=== PATIENT | male | born 1990 | race Caucasian/White ===

== ENCOUNTER 2021-01-26 12:32 | Outpatient (CLI) | payer OTHER, SELFPAY ==
--- NOTE | ~2021-01-26 | MR_ITS ---
EXAMINATION: MR brain IAC wo/w con EXAM DATE: 01/26/2021 13:52 INDICATION: Dizziness, pressure in right ear with associated gait disturbance. TECHNIQUE: Multi-sequential, multiplanar MR images of the brain, brainstem, internal auditory canals were obtained without contrast. Whole brain sagittal T1, axial diffusion, gradient echo (T2*), T1, T 2, FLAIR sequences obtained. High resolution coronal 3-D FIESTA, coronal T1 FSE, axial T1 FSPGR of t he internal auditory canals. Patient was then injected with 20 cc Multihance contrast intravenously. Postcontrast axial and coronal T1 weighted whole brain, axial and coronal high resolution T1 IAC seq uences obtained. There is no prior study for comparison. FINDINGS: No evidence of mastoid or middle ear opacification. The 7th/8th cranial nerve complexes a re symmetric, normal in course and caliber. No cerebellopontine angle masses. Posterior fossa unrem arkable. There are no areas of restricted diffusion to suggest acute infarction. There is no acute hemorrhage seen on the T2*, a hemosiderin sensitive sequence. No intraparenchymal brain mass. The ventricles a re normal in size. There are no extra-axial collections. Flow voids are seen in the cerebral arteri es on the T2-weighted sequences consistent with their expected patency. The orbits are unremarkable. Soft tissue is unremarkable. There are no areas of abnormal enhancement on the postcontrast image s. IMPRESSION: 1. Normal brain MRI examination. Reviewed, dictated and finalized at location A.
[2021-01-26 13:10] LABS: Estimated Glomerular Filt Rate > 60
== END 2021-01-26 12:33 | disposition home or self-care (01) ==
LOC: ANHIMG 12:41
DX: R42 Dizziness and giddiness (principal); H93.11 Tinnitus, right ear; H90.5 Unspecified sensorineural hearing loss
CPT/HCPCS: 70553; A9577

== ENCOUNTER 2021-03-23 14:31 | Emergency (ER) | payer OTHER, SELFPAY ==
[2021-03-23 14:47] VITALS: BP 143/81; PULSE 85; RESP 18; TEMP 36.6; O2SAT 98
--- NOTE | 2021-03-23 15:17 | ED.ABDPAIN ---
HPI - Abdominal Pain General Chief Complaint: Abdominal Pain Stated Complaint: Abdominal pain Source: patient and RN notes reviewed Limitations: no limitations History of Present Illness HPI narrative: The patient, previously mostly healthy, presents with abdominal pain. Patient states he has 1/2-week history of definite left lower quadrant tenderness .No fever, frequency/urgency/dysuria/hematuria, no vomiting/diarrhea, constipation, stool changes [darker/training and development specialist/ looser] . Symptoms are mild, worse with full bladder or palpation, can radiate medially. Last bowel movement was yesterday; he was obstipated a couple months ago when he was taking anticholinergic/antihistamines for vertigo. Vital signs stable BP 143/81. The patient has been informed that they may have pre-hypertension or Hypertension based on a BP reading in the department. I recommend that the patient call the primary care provider listed on their discharge instructions or a physician of their choice this week to arrange follow up for further evaluation of possible pre-hypertension or Hypertension Related Data Home Medications Medication Instructions Recorded Confirmed doxepin 03/23/21 Allergies Allergy/AdvReac Type Severity Reaction Status Date / Time No Known Allergies Allergy Verified 03/23/21 14:59 Review of Systems Review of Systems: General/Constitutional: No weight loss,fever Eyes: N0: Redness,discharge Ears/Nose/Throat: No: Epistaxis,ear discharge Respiratory: Denies: Hemoptysis Gastrointestinal: No Vomiting, Bleeding-rectal Skin: No Lumps, eruption Neurologic: No Focal Weakness,Sz Hematologic: Denies: Petechiae/Purpura Psychiatric: No: Suicida ideationl All Other Systems: Reviewed and Negative PMFSH Comments At time of signature, agree with nursing past medical, surgical, social and family history. There is no relevant family history pertinent to the presenting complaint Exam Narrative: General Appearance: Well appearing, No distress EYE: PERRLA, Conjunctiva clear Ears: External ear normal Nose: Normal nose Mouth/Throat: Normal appearing, Normal lips Neck: Supple Respiratory: Airway patent, No respiratory distress Cardiovascular: RRR Abdomen: Soft, definite mild tender LLQ , No massess, No organomegaly (no rebound/ surgical signs), nl bowel sounds Musculoskeletal: Full ROM Skin: Warm, Dry Neurological: A&O x3, CN II-X intact Psychiatric: Normal mood, Normal affect Course Vital Signs Vital signs: Vital Signs Temperature 97.8 F 03/23/21 14:47 Pulse Rate 85 03/23/21 14:47 Respiratory Rate 18 03/23/21 14:47 Blood Pressure 143/81 H 03/23/21 14:47 Pulse Oximetry 98 03/23/21 14:47 Temperature 97.8 F 03/23/21 14:47 Pulse Rate 85 03/23/21 14:47 Respiratory Rate 18 03/23/21 14:47 Blood Pressure 143/81 H 03/23/21 14:47 Pulse Oximetry 98 03/23/21 14:47 MDM - Abdominal Pain Lab Data Labs: Urine Glucose Negative Reference Range: Negative Urine Bilirubin Negative Reference Range: Negative Urine Ketone Trace Reference Range: Negative Urine Specific Anderson 1.030 Reference Range:1.001-1.035 Urine Blood Negative Reference Range: Negative * * Urine pH 6.5 Reference Range: 5.0-9.0 Urine Protein Negative Reference Range: Negative Urine Urobilinogen 0.2 Reference Range: 0.2-1.0 Urine Nitrate
== END 2021-03-23 15:38 | disposition home or self-care (01) ==
PROVIDERS: Emergency Provider Emergency Medicine
DX: R10.32 Left lower quadrant pain (principal)
CPT/HCPCS: 81003; 99213; G0463

== ENCOUNTER 2022-08-30 08:17 | Emergency (ER) | payer OTHER, SELFPAY ==
[2022-08-30 08:28] VITALS: BP 144/78; PULSE 78; RESP 16; TEMP 36.8; O2SAT 99
--- NOTE | 2022-08-30 08:33 | ED.URI ---
HPI - URI/Sore Throat General Chief Complaint: Upper Respiratory Infection Stated Complaint: Sore Throat Time Seen by Provider: 08/30/22 08:33 History of Present Illness HPI Narrative: 32-year-old male presented for complaint of sore throat since yesterday, with associated sinus congestion and drainage and body aches over the past few days. Patient also reports he has recurrent right ear pressure, and is being seen by ENT for possible vestibular migraines versus eustachian tube dysfunction, and is currently on day 3 of the steroid taper. He is also taking Xyzal and Flonase for symptoms. He denies cough, shortness of breath, wheezing, nausea, vomiting, fevers or chills. Endorses his son tested positive for strep last week. Related Data Home Medications Medication Instructions Recorded Confirmed doxepin 25 mg capsule 25 mg PO HS 03/23/21 08/30/22 fluticasone propionate 50 1 spray intranasal DAILY 08/30/22 08/30/22 mcg/actuation nasal spray,suspension levocetirizine 5 mg tablet (Xyzal) 5 mg PO DAILY 08/30/22 08/30/22 prednisone 10 mg tablet 10 mg PO DAILY 08/30/22 08/30/22 Allergies Allergy/AdvReac Type Severity Reaction Status Date / Time No Known Allergies Allergy Verified 08/30/22 08:25 Review of Systems Review of Systems: CONSTITUTIONAL: Denies fever, chills, or sweats. EYES: Denies visual changes, redness, or discharge. ENT: reports rhinorrhea, congestion, otalgia, sore throat CARDIOVASCULAR: Denies chest pain, palpitations, or edema. RESPIRATORY: Denies dyspnea. GASTROINTESTINAL: Denies abdominal pain, nausea, vomiting, or diarrhea. SKIN: Denies rash, itching, or wounds. MUSCULOSKELETAL: Denies back pain, joint pain, or myalgia. NEUROLOGIC: Denies headache PMFSH Past Medical History Medical History (Updated 08/30/22 @ 08:42 by Olga Lidia Bray APRN) No pertinent past medical history Exam Narrative: GENERAL: mildly Ill-appearing, no acute distress. EYES: conjunctivae clear ENT: Mucous membranes moist. TMs pearly mancini with normal light reflex bilaterally; no tragal tenderness. Oropharynx not erythematous Tonsils 1+ without exudate. No drooling, no hoarseness, no trismus, uvula midline. No tripod positioning, hot potato voice, or soft palate swelling. NECK: Supple. No lymphadenopathy CHEST: Clear to auscultation, breath sounds equal. No respiratory distress, speaks in full sentences. HEART: Regular rate and rhythm. No murmur heard. SKIN: Warm, dry, no rash. NEURO: Alert and oriented x3. Course Course Emergency Course: Patient is aware of diagnosis, understands and agrees to treatment plan. Anticipatory guidance given. Patient agrees to follow-up as directed and is aware of reasons to seek care at the emergency department. Portions of this record may have been created with voice recognition software Level of Care: Express Care Visit Vital Signs Vital signs: Vital Signs Temperature 98.3 F 08/30/22 08:28 Pulse Rate 78 08/30/22 08:28 Respiratory Rate 16 08/30/22 08:28 Blood Pressure 144/78 H 08/30/22 08:28 Pulse Oximetry 99 08/30/22 08:28 Oxygen Delivery Room Air 08/30/22 08:28 Temperature 98.3 F 08/30/22 08:28 Pulse Rate 78 08/30/22 08:28 Respiratory Rate 16 08/30/22 08:28 Blood Pressure 144/78 H 08/30/22 08:28 Pulse Oximetry 99 08/30/22 08:28 Oxygen Delivery Room Air 08/30/22 08:28 MDM - URI/Sore Throat MDM Narrative Medical decision making narrative: strep result reviewed with pt. Advise supportive treatments. Patient is appropriate for outpatient treatment and follow-up. Differential Diagnosis Differential diagnosis: Likely upper respiratory infection, viral infection and pharyngitis Lab Data Labs: Strep Screen Presumptive Negative *(Reference Range: Negative)* Discharge Plan Discharge Clinical Impression: Viral infection Patient Dispos
== END 2022-08-30 09:20 | disposition home or self-care (01) ==
PROVIDERS: Emergency Provider Nurse Practitioner Family
DX: B34.9 Viral infection, unspecified (principal)
CPT/HCPCS: 87081; 87880; 99213; G0463

== ENCOUNTER 2024-10-05 14:56 | Emergency (ER) | payer OTHER, SELFPAY ==
--- NOTE | ~2024-10-05 | XR_ITS ---
EXAMINATION: XR chest 2V 10/05/2024 15:49 INDICATION: Left-sided chest pain PROCEDURE: 2 view chest COMPARISON: No prior studies for comparison. FINDINGS: The lungs are clear. The cardiomediastinal silhouette is within normal limits. There are no pleural effusions. There is no pneumothorax suspected. IMPRESSION: 1: NO ACUTE CARDIOPULMONARY DISEASE. Reviewed, dictated and finalized at location B.
--- NOTE | 2024-10-05 15:00 | ED_ITS ---
HPI - SOB/Dyspnea General Chief Complaint: Chest Pain Stated Complaint: pain when breathing Time Seen by Provider: 10/05/24 15:00 Source: patient Mode of arrival: ambulatory Limitations: no limitations History of Present Illness HPI Narrative: Po is a 34-year-old male patient presenting to the clinic today with complaints of lung pain with taking a deep breath. States when he takes a deep breath at the end of taking the deep breath he has pain to the left side of his chest radiating in to his back. Does report some shortness of breath as well. Has had a nonproductive cough for the past 2 weeks. Denies any fevers, chills, body aches. Recently has been wearing a Holter monitor prescribed by his primary care provider as he has been experiencing palpitations. 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 Patient takes testosterone daily. He is a nonsmoker. No recent injuries/ traumas or recent immobilization Related Data Home Medications ?Medication ?Instructions ?Recorded ?Confirmed ?Last Taken ?Type doxepin 25 mg capsule 25 mg PO HS 03/23/21 08/30/22 Unknown History fluticasone propionate 50 1 spray intranasal DAILY 08/30/22 08/30/22 Unknown History mcg/actuation nasal spray,suspension levocetirizine 5 mg tablet (Xyzal) 5 mg PO DAILY 08/30/22 08/30/22 Unknown History montelukast 10 mg tablet mg 10/05/24 Unknown History rosuvastatin 10 mg tablet mg 10/05/24 Unknown History testosterone 10/05/24 Unknown History Allergies Allergy/AdvReac Type Severity Reaction Status Date / Time No Known Allergies Allergy Verified 10/05/24 15:01 Review of Systems Review of Systems: Pertinent positives per HPI. Patient denies any fever, chills, rash, headache, visual changes, dizziness, runny nose, sore throat, nausea, vomiting, diarrhea, constipation, abdominal pain, or any urinary issues. [facility] Past Medical History Medical History No pertinent past medical history Comments At the time of my signature, I reviewed and agree with the nursing past medical, surgical, social, and family history. There is no relevant family history pertinent to the patient complaint. Exam Narrative: General: Well-developed, well nourished, in no apparent distress Head: Normocephalic, atraumatic Eyes: Pupils equally round and reactive to light bilaterally, EOM intact, sclera and conjunctive clear, no discharge, lids normal Ears: TMs intact and clear, ear canals clear, no drainage, grossly hearing n ormal. Nose: Nares patent, no discharge, no inflammation, no sinus tenderness. Mouth: Oropharynx without lesions or masses, good dentition, MMM. Neck: Supple, trachea midline, no enlargement of anterior or posterior cervical nodes, no thyroid masses or goiter palpable. Cardio: Regular rate and rhythm, s1 and s2 normal, no murmur appreciated. Resp: Clear to auscultation bilaterally anteriorly and posteriorly, no rhonchi, rales, wheezing or rubs Extremities: No deformity, no edema, no cyanosis, capillary refill less than 2 seconds, peripheral pulses palpable and strong. Integumentary: Perrin, warm, and dry, intact without lesion, no rashes. Course Course Emergency Course: Portions of this record may have been created with voice recognition software. Level of Care: Express Care Visit Vital Signs Vital signs: Vital Signs Temperature 36.7 C 10/05/24 15:09 Pulse Rate 65 10/05/24 15:09 Respiratory Rate 20 10/05/24 15:09 Blood Pressure 132/70 10/05/24 15:09 Pulse Oximetry 98 10/05/24 15:09 Oxygen Delivery Room Air 10/05/24 15:09 Temperature 36.7 C 10/05/24 15:09 Pulse Rate 65 10/05/24 15:09 Respiratory Rate 20 10/05/24 15:09 Blood Pressure 132/70 10/05/24 15:09 Pulse Oximetry 98 10/05/24 15:09 Oxygen Delivery Room Air 10/05/24 15:09 Vital signs reviewed MDM - SOB/Dyspnea MDM Narrative Medical decision making narrative: At the time of visit patient is resting comfortably on the exam table. Patient appears to be nontoxic. EKG: EKG shows normal sinus rhythm with heart rate of 63 beats per minute. No ST elevation, depression, or T-wave inversion noted. Diagnostics: Chest x-ray was performed and is negative for any acute cardiopulmonary process. Plan: I suspect patient likely has pleuritic chest pain/atypical chest pain. Wells criteria very low risk for PE. Prescription for naproxen was sent to the pharmacy. Supportive measures were discussed with the patient and they voiced understanding discharge instructions and agrees to treatment plan. Return precautions reviewed Well Criteria for PE: 0.0?points Low risk group: 1.3% chance of PE in an ED population. Another study assigned scores <=4 as ?PE Unlikely? and had a 3% incidence of PE. Differential Diagnosis Differential diagnosis: Likely congestive heart failure, community acquired pneumonia, asthma with exacerbation, pulmonary embolism and other (Pleurisy, costochondritis, atypical chest pain, STEMI, non STEMI) Imaging Data Radiologist's impression: ITS Impressions Chest X-Ray 10/05/24 15:53 IMPRESSION: 1: NO ACUTE CARDIOPULMONARY DISEASE. ECG Data EKG #1: Attestation: I personally reviewed and interpreted this ECG as follows: ECG completion date: 10/05/24 ECG completion time: 15:29 Prior ECG tracings: not available for review Interpretation: EKG shows normal sinus rhythm with heart rate of 63 beats per minute. No ST elevation, depression, or T-wave inversion noted. MI interval is 180 milliseconds, QRS durations 96 milliseconds, QT-QTC is 391-398 milliseconds, P-R-T axis is 49 -1 34 Discharge Plan Discharge Clinical Impression: Pain of anterior chest wall with respiration Patient Disposition: Home Condition: Stable Instructions: Antibiotic Form, Pleurisy (ED), Chest Wall Pain (ED) Additional Instructions: EKG shows normal sinus rhythm with a heart rate of 63 beats per minute in the clinic today Chest x-rays negative for any acute cardiopulmonary process. I suspect you likely have pleurisy. Take prescription medications only as prescribed-prednisone Increase fluids and stay well hydrated Tylenol/motrin for pain/fever Flonase and OTC antihistamines as directed Vicks vapor rub to open sinuses Sinus rinses for congestion Cepacol spray, cough drops, throat lozenges, warm tea with honey/lemon, gargle salt water to soothe throat BRAT diet for diarrhea Clear liquids x 24 hours then advance as tolerated for nausea/vomiting Go to the ED if you develop a worsening in your condition- high fever not controlled by Tylenol or Motrin, dehydration, weakness, lethargy, shortness of breath, or chest pain. Follow up with your PCP in 3-5 days if symptoms persist. Patient Language: Bulgarian Prescriptions: New naproxen 500 mg tablet 500 mg PO BID PRN (Reason: pain) 7 Days Qty: 14 0RF No Action doxepin 25 mg capsule 25 mg PO HS montelukast 10 mg tablet rosuvastatin 10 mg tablet testosterone 20.25 mg/1.25 gram (1.62 %) gel in metered-dose pump fluticasone propionate [Flonase] 50 mcg/actuation [place],Suspension 1 spray INTRANASAL DAILY Rx Instructions: administer into each nostril levocetirizine [Xyzal] 5 mg Tablet 5 mg PO DAILY Follow-up/Referrals: UNKNOWN,DOCTOR [Non-Staff] - Time of Disposition: 16:02 Quality NIHSS Nursing Documentation ED NIHSS nursing documentation: reviewed/agree
[2024-10-05 15:09] VITALS: BP 132/70; PULSE 65; RESP 20; TEMP 36.7; O2SAT 98
--- NOTE | 2024-10-05 15:17 | ECG_ITS ---
Test Date: 2024-10-05 15:32:24 Measurements Intervals [place] Rate: 63 P: 49 ID: [id number] QRS: -1 QRSD: 96 T: 34 QT: 391 QTc: 401 Interpretive Statements SINUS RHYTHM BASELINE ARTIFACT- I, II, III, AVR, AVL, AVF NORMAL ECG No previous ECG available for comparison Electronically Signed On 10-05-2024 16:13:31 CDT by Iker Syed D.O.
== END 2024-10-05 16:20 | disposition home or self-care (01) ==
PROVIDERS: Emergency Provider Nurse Practitioner Family
DX: R07.1 Chest pain on breathing (principal)
CPT/HCPCS: 71046; 93005; 99213; G0463

== ENCOUNTER 2024-10-14 19:07 | Emergency (ER) | payer OTHER, SELFPAY ==
--- NOTE | ~2024-10-14 | XR_ITS ---
CHEST RADIOGRAPH, PA AND LATERAL CLINICAL HISTORY: chest pain . COMPARISON: 10/05/2024 TECHNIQUE: PA and lateral views of the chest. FINDINGS The cardiomediastinal silhouette is unremarkable. The lungs are clear. IMPRESSION: No focal infiltrate or effusion. Reviewed, dictated and finalized at location A.
--- OUTSIDE RECORDS SUMMARY | 2024-10-14 19:09 | XMS_ITS | Clinical Summary ---
Author Organization [employer] [facility] [address] Address [address] [facility] [place] [address] Phone Care Team Providers Care Chemistry Account Manager Name Role Phone Naomi Roman MD Primary Care Provider [phone] Allergies No known active allergies Medications ondansetron (ZOFRAN ODT) 4 mg Tablet, Rapid Dissolve Take 4 mg by mouth every 6 hours as needed. 1 Active meclizine (ANTIVERT) 25 mg tablet Take 25 mg by mouth 4 times daily as needed. 1 Active levocetirizine 5 mg tablet Take 5 mg by mouth late in the day. Active fluticasone propionate 50 mcg/actuation nasal spray,suspensio n Administer 2 Sprays in each nostril daily. Active doxepin (SINEquan) 25 mg capsuleIndicati ons:Other insomnia TAKE 1 CAPSULE BY MOUTH AT BEDTIME 90 Capsule 3 3 Active rosuvastatin (CRESTOR) 10 mg tablet TAKE 1 TABLET (10 MG) BY MOUTH DAILY. 90 Tablet 4 4 Active TESTOSTERONE ENANTHATE IM Inject by intramuscular injection. Active SUMATRIPTAN SUCCINATE ORAL Take by mouth. Active lansoprazole (PREVACID) 30 mg Capsule, Delayed Release(E.C.)In dications:Gastr oesophageal reflux disease, unspecified whether esophagitis present Take 1 Capsule (30 mg) by mouth daily. 90 Capsule 1 4 Active promethazine-de xtromethorphan (PHENERGAN-DM) 6.25-15 mg/5 mL syrup Take 5 mL by mouth every 6 hours as needed for Cough. 140 mL 4 Active dexAMETHasone (DECADRON) 0.5 mg tablet Take 1 Tablet (0.5 mg) by mouth daily. 7 Tablet 4 Active cephALEXin (KEFLEX) 500 mg capsule Take 1 Capsule (500 mg) by mouth 3 times daily. 21 Capsule 4 Active montelukast (SINGULAIR) 10 mg tablet Take 1 Tablet (10 mg) by mouth daily at bedtime. 90 Tablet 1 5 Active naproxen (NAPROSYN) 500 mg tablet TAKE 1 TABLET BY MOUTH TWICE A DAY NEEDED FOR PAIN FOR 7 DAYS 5 Active busPIRone (BUSPAR) 7.5 mg TabletIndicatio ns:Anxiety state Take 1 Tablet (7.5 mg) by mouth 2 times daily. 60 Tablet 5 Active Active Problems Problem Noted Date Diagnosed Date Dyspnea 10/08/2024 Arrhythmia 10/08/2024 Pleurisy 10/08/2024 Palpitation 09/01/2024 Acute recurrent frontal sinusitis 04/09/2024 Folliculitis 09/12/2023 Obesity (BMI 30.0-34.9) 09/16/2022 Fatigue 08/29/2022 Other insomnia 08/29/2022 Pressure sensation in ear 08/29/2022 Gastroesophageal reflux disease 08/21/2021 Mixed hyperlipidemia 08/21/2021 Hypogonadism in male 05/10/2019 Resolved Problems Problem Noted Date Diagnosed Date Resolved Date Folliculitis 12/11/2021 08/29/2022 Rash on lips 11/29/2021 08/29/2022 Acute diarrhea 11/29/2021 08/29/2022 Acute generalized abdominal pain 11/29/2021 08/29/2022 Bacterial overgrowth syndrome 08/21/2021 08/29/2022 Encounters Date Type Department Care Team Description 10/11/2024 Orders Only [facility] [address] [place] [address] Naomi Roman MD Anxiety state (Primary Dx) 10/10/2024 Results Follow-Up [facility] [address] [place] [phone] Naomi Roman MD SEDIMENTATION RATE, LANCE SCREEN W/REFLEX, ANGIOTENSIN CONVERTING ENZYME, CYCLIC CITRULLINATED PEPTIDE AB IGG 10/08/2024 9:20 AM CDT Office Visit [facility] [address] [place] [phone] Naomi Roman MD Other form of dyspnea (Primary Dx); Other cardiac arrhythmia; Pleurisy; Palpitation; Mixed hyperlipidemia; Hypogonadism in male 10/08/2024 Results Follow-Up [address] [place] [phone] Naomi Roman MD MOBILE CARDIAC OUTPATIENT TELEMETRY 10/05/[address] [place] [phone] Naomi Roman MD Clinical Consult Before Scheduling; Chest Pain 09/11/2024 Orders Only [address] [place] [phone] Naomi Roman MD Palpitation (Primary Dx) 09/10/[address] [place] [address] Naomi Roman MD Question 09/03/2024 2:07 PM CDT - 09/03/2024 11:59 PM CDT Hospital Encounter [facility]iology [address] [place] [address] Naomi Roman MD Discharge Disposition: Home or Self Care 09/03/2024 Orders Only [facility] [address] [place] [phone] Naomi Roman MD Palpitation (Primary Dx) 09/03/[address] [place] [phone] Naomi Roman MD MCOT placed; appt for MCOT; MCOT info 09/03/[address] [place] [address] Shy Meng FNP 09/02/2024 Orders Only [address] [place] [address] Naomi Roman MD Palpitation (Primary Dx) 09/02/2024 Results Follow-Up [address] [place] [address] Naomi Roman MD TSH, CBC WITH DIFFERENTIAL, COMPREHENSIVE METABOLIC PANEL, MAGNESIUM LEVEL 09/01/2024 3:20 PM CDT Office Visit [address] [place] [address] Naomi Roman MD Palpitation (Primary Dx); Hypogonadism in male; Gastroesophageal reflux disease, unspecified whether esophagitis present; Mixed hyperlipidemia 07/14/2024 External Device Data STL ABSTRACTION Provider, Abstract from Last 3 Months Immunizations Immunization Administration Dates Next Due (DAPTACEL)(6 WKS-6 YRS) DIPH THERIA, TETANUS TOXOIDS, AND ACCELLULAR PERTUSSIS VACCINE (DTAP), 0.5ML, IM 12/15/2020 INFLUENZA VACCINE QUADRIVALENT 6 MOS UP IM 02/21 INFLUENZA VACCINE QUADRIVALENT 6 MOS UP PF IM Family History Medical History Relation Name Comments High Cholesterol Father Jerrod Villarreal Sr. High Cholesterol Mother Manuela Villarreal Relation Name Status Comments Father Jerrod Villarreal Sr. 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 Gender Identity Not on file Sexual Orientation Not on file Last Filed Vital Signs Vital Sign Reading Time Taken Comments Blood Pressure 130/68 10/08/2024 9:05 AM CDT Pulse 86 10/08/2024 9:05 AM CDT Temperature 36.8 C (98.3 F) 10/08/2024 9:05 AM CDT Respiratory Rate 22 10/08/2024 9:05 AM CDT Oxygen Saturation 99% 10/08/2024 9:05 AM CDT Inhaled Oxygen Concentration - - Weight 108 kg (238 lb) 10/08/2024 9:05 AM CDT Height 182.9 cm (6') 10/08/2024 9:05 AM CDT Body Mass Index 32.28 10/08/2024 9:05 AM CDT Plan of Treatment Upcoming Encounters Date Type Department Care Team (Late st Contact Info) Description 10/26/2024 9:00 AM CDT Appointment [facility] Cardiology Services [facility] [address] [facility] [address] [place] [address] Naomi Roman MD [address] [place] [address] 10/26/2024 2:15 PM CDT Office Visit [facility] [address] [address] [address] [place] [address] Lc Wilson MD [address] [address] [address] [place] [address] 01/20/2025 1:30 PM CDT Office Visit [facility] [address] [place] [address] Shy Meng FNP [address] [place] [address] [place] [address] 01/28/2025 9:00 AM CDT Office Visit [facility] [address] [place] [address] Naomi Roman MD [address] [facility] [place] [address] Health Maintenance Due Date Last Done Comments HEPATITIS B VACCINES (1 of 3 - 19+ 3-dose series) 2010 INFLUENZA VACCINE (#1) 2023 2, 02/04/2020 Preventative Visit- Commercial 10/08/2025 Postponed from 04/28 (Therapeutic Plan Prohibits) DTAP/TDAP/TD VACCINES (2 - Tdap) 12/15/2030 12/15/2020 HPV VACCINES Aged Out No longer eligi ble based on patient's age to complete this topic Procedures Procedure Name Priority Date/Time Associated Diagnosis Comments CYCLIC CITRULLINATED PEPTIDE AB IGG Routine 10/08/2024 10:19 AM CDT Pleurisy ANGIOTENSIN CONVERTING ENZYME Routine 10/08/2024 10:19 AM CDT Pleurisy SEDIMENTATION RATE Routine 10/08/2024 10 :19 AM CDT Pleurisy LANCE SCREEN W/REFLEX Routine 10/08/2024 1 0:19 AM CDT Pleurisy MOBILE CARDIAC OUTPATIENT TELEMETRY Routine 10/02/2024 5:00 AM CDT Palpitation MAGNESIUM LEVEL Routine 09/01/2024 4:48 PM CDT Palpitation COMPREHENSIVE METABOLIC PANEL Routine 09/01/2024 4:48 PM CDT Palpitation CBC WITH DIFFERENTIAL Routine 09/01/2024 4:48 PM CDT Palpitation TSH Routine 09/01/2024 4:48 PM CDT Palpitation EKG 12-LEAD Routine 09/01/2024 Palpitation from Last 3 Months Results * CYCLIC CITRULLINATED PEPTIDE AB IGG (10/08/2024 10:19 AM CDT) Pathologist [facility] CYCLIC CITRULLINATED PEPTIDE AB IGG <16 UNITS [facility] Comment: Reference Range Negative: <20 Weak Positive: 20-39 Moderate Positive: 40-59 Strong Positive: >59 Test Performed at: [facility] [address] [place] [address] Zaina Thompson MD Blood 10/08/2024 10:1 9 AM CDT 10/08/2024 10:19 AM CDT Naomi Roman MD CHEMISTRY ORDERABLES Final Resu lt Performing Organization Address City/[facility]/ZIP [facility] Phone Number [facility] [phone] [facility] [address] [place] [address] * SEDIMENTATION RATE (10/08/2024 10:19 AM CDT) Pathologist [facility] ESR (SEDIMENTATION RATE) 2 < OR = 15 mm/h [facility] Comment: Test Performed at: [facility] [address] [place] [address] Zaina Thompson Blood 10/08/2024 10:1 9 AM CDT 10/08/2024 10:19 AM CDT Naomi Roman MD HEMATOLOGY ORDERABLES Final Res ult Performing Organization Address City/[facility] Phone Number [facility] [phone] [place] [address] [place] [address] * ANGIOTENSIN CONVERTING ENZYME (10/08/2024 10:19 AM CDT) Pathologist [facility] ANGIOTENSIN CONVERTING ENZYME 15 9 - 67 U/L [facility] Comment: Test Performed at: [facility] [address] [place] [address] Zaina Thompson MD Blood 10/08/2024 10:1 9 AM CDT 10/08/2024 10:19 AM CDT Naomi Roman MD CHEMISTRY ORDERABLES Final Resu lt Performing Organization Address City/[facility]/ZIP Co de Phone Number [facility] [phone] [facility] [address] [place] [address] * LANCE SCREEN W/REFLEX (10/08/2024 10:19 AM CDT) LANCE SCREEN NEGATIVE NEGATIVE [facility] Comment: LANCE IFA is a first line screen for detecting the presence of up to approximately 150 autoantibodies in various autoimmune diseases. A negative LANCE IFA result suggests an LANCE-associated autoimmune disease is not present at this time, and does not reflex further. If there is high clinical suspicion for Sjogren's syndrome, testing for anti-SS-A/Ro antibody should be considered. Anti-Arielle-1 antibody should be considered for clinically suspected inflammatory myopathies. AC-0: Negative International Consensus on LANCE Patterns (https://doi.org/10.1515/gjdz-3208-9069) For additional information, please refer to http://education.Good Thing/faq/FWT418 (This link is being provided for informational/ educational purposes only.) Test Performed at: [facility] [address] Zaina Thompson MD Blood 10/08/2024 10:1 9 AM CDT 10/08/2024 10:19 AM CDT Naomi Roman MD CHEMISTRY ORDERABLES Final Resu lt [facility] [phone] [facility] [address] [address] [facility] [place] [address] * MOBILE CARDIAC OUTPATIENT TELEMETRY (10/02/2024 5:00 AM CDT) 10/02/2024 5:00 AM CDT Narrative INTERFACE SYSTEM - 10/07/2024 7:40 AM CDT [facility] [address] [place] [address] Test Date: 2024-10-02 Pat Name: RUPERTO VILLARREAL Department: Room: Gender: Male Process Worker: : 1990 Requested By: NAOMI ROMAN Order Number: [id number] Josesito LAWSON: Dmitriy Bruce Interpretive Statements Patient monitored for 27d 11h 27m beginning 09/03/24 The rhythm was sinus. HR ranged from 39-120; avg 69 bpm. 153 events were transmitted. 126 patient triggered; 27 auto triggered Pt triggered events for skipped beat predominantly show SR with PVCs. Some showes SR without ectopy. less than 0.1% AF was found during the monitoring period- one rhythm strip on 09/07 at 1:45 am showed possible atrial flutter rate 59 bpm vs SR with baseline artifact. VT occurred 1 time(s) with fastest run 180 BPM lasting 6 beats Heart Block occurred 2 time(s) the most severe 1 degrees ; slowest 56 BPM 19,520 PACs with PAC burden of 1% 62,438 PVCs with PVC burden of 3% Electronically Signed On 10-07-2024 7:40:20 CDT by Dmitriy Bruce Procedure Note Dmitriy Bruce MD - 10/07/2024 [facility] [address] [place] [address] Test Date: 2024-10-02 Pat Name: RUPERTO VILLARREAL Department: Room: Gender: Male Process Worker: : 1990 Requested By: NAOMI ROMAN Order Number: [id number] Josesito LAWSON: Dmitriy Bruce Interpretive Statements Patient monitored for 27d 11h 27m beginning 09/03/24 The rhythm was sinus. HR ranged from 39-120; avg 69 bpm. 153 events were transmitted. 126 patient triggered; 27 auto triggered Pt triggered events for skipped beat predominantly show SR with PVCs. Some showes SR without ectopy. less than 0.1% AF was found during the monitoring period- one rhythmstrip on 09/07 at 1:45 am showed possible atrial flutter rate 59 bpm vs SR with baseline artifact. VT occurred 1 time(s) with fastest run 180 BPM lasting 6 beats Heart Block occurred 2 time(s) the most severe 1 degrees ; slowest 56 BPM 19,520 PACs with PAC burden of 1% 62,438 PVCs with PVC burden of 3% Electronically Signed On 10-07-2024 7:40:20 CDT by Dmitriy Bruce us Naomi Roman MD CARDIAC SERVICES ORDERABLES Fin al Result INTERFACE SYSTEM Refer to clinic/hospital department * CBC WITH DIFFERENTIAL (09/01/2024 4:48 PM CDT) WBC 8.2 3.8 - 10.8 Thousand/u L [facility] RBC 5.51 4.20 - 5.80 Million/uL [facility] HEMOGLOBIN 15.2 13.2 - 17.1 g/dL [facility] HEMATOCRIT 46.9 38.5 - 50.0 % [facility] MCV 85.1 80.0 - 100.0 fL [facility] MCH 27.6 27.0 - 33.0 pg [facility] MCHC 32.4 32.0 - 36.0 g/dL [facility] Comment: For adults, a slight decrease in the calculated MCHC value (in the range of 30 to 32 g/dL) is most likely not clinically significant; however, it should be interpreted with caution in correlation with other red cell parameters and the patient's clinical condition. RDW 13.4 11.0 - 15.0 % [facility] PLATELETS 220 140 - 400 Thousand/u L [facility] MPV 9.7 7.5 - 12.5 fL [facility] NEUTROPHIL ABSOLUTE 5,248 1,500 - 7,800 cells/uL [facility] LYMPHOCYTE ABSOLUTE 2,091 850 - 3,900 cells/uL [facility] MONOCYTE ABSOLUTE 713 200 - 950 cells/uL [facility] EOSINOPHIL ABSOLUTE 98 15 - 500 cells/uL [facility] BASOPHILS ABSOLUTE 49 0 - 200 cells/uL [facility] NEUTROPHIL 64 % [facility] LYMPHOCYTES 25.5 % [facility] MONOCYTE 8.7 % [facility] EOSINOPHILS 1.2 % [facility] BASOPHILS 0.6 % [facility] Comment: FASTING:YES FASTING: YES Test Performed at: [facility] [address] Zaina Thompson MD Blood 09/01/2024 4:48 PM CDT 09/01/2024 4:48 PM CDT Naomi Roman MD HEMATOLOGY ORDERABLES Final Res ult Performing Organization Address City/[facility]/ZIP Co de Phone Number [facility] [phone] [facility] [address] * TSH (09/01/2024 4:48 PM CDT) TSH 1.78 0.40 - 4.50 mIU/L [facility] Comment: FASTING:YES FASTING: YES Test Performed at: [facility] [address] Zaina Thompson MD Blood 09/01/2024 4:48 PM CDT 09/01/2024 4:48 PM CDT Naomi Roman MD CHEMISTRY ORDERABLES Final Resu lt Performing Organization Address City/[facility]/ZIP Co de Phone Number [facility] [phone] [facility] [address] [place] [address] * MAGNESIUM LEVEL (09/01/2024 4:48 PM CDT) MAGNESIUM 2.4 1.5 - 2.5 mg/dL [facility] Comment: Test Performed at: [employer] [facility] [address] Zaina Thompson MD Blood 09/01/2024 4:48 PM CDT 09/01/2024 4:48 PM CDT Naomi Roman MD CHEMISTRY ORDERABLES Final Resu lt [facility] [phone] [facility] [address] [place] [address] * COMPREHENSIVE METABOLIC PANEL (09/01/2024 4:48 PM CDT) GLUCOSE 95 65 - 99 mg/dL [facility] Comment: Fasting reference interval BUN 19 7 - 25 mg/dL [facility] CREATININE 0.96 0.60 - 1.26 mg/dL [facility] GFR 107 > OR = 60 mL/min/1. 73m2 [facility] BUN/CREAT RATIO SEE NOTE: 6 - 22 (calc) [facility] Comment: Not Reported: BUN and Creatinine are within reference range. SODIUM 141 135 - 146 mmol/L [facility] POTASSIUM 4.0 3.5 - 5.3 mmol/L [facility] CHLORIDE 104 98 - 110 mmol/L [facility] CO2 31 20 - 32 mmol/L [facility] CALCIUM 9.5 8.6 - 10.3 mg/dL [facility] TOTAL PROTEIN 7.6 6.1 - 8.1 g/dL [facility] ALBUMIN 4.7 3.6 - 5.1 g/dL [facility] GLOBULIN 2.9 1.9 - 3.7 g/dL (calc) [facility] ALBUMIN/GLOBULIN RATIO 1.6 1.0 - 2.5 (calc) [facility] BILIRUBIN TOTAL 0.6 0.2 - 1.2 mg/dL [facility] ALKALINE PHOSPHATASE 48 36 - 130 U/L [facility] AST 28 10 - 40 U/L [facility] ALT 37 9 - 46 U/L [facility] Comment: FASTING:YES FASTING: YES Test Performed at: [facility] [address] [place] [address] Zaina Thompson MD Blood 09/01/2024 4:48 PM CDT 09/01/2024 4:48 PM CDT us Naomi Roman MD CHEMISTRY ORDERABLES Final Resu lt [facility] [phone] [facility] [address] [place] [address] * (ABNORMAL) EKG 12-LEAD (09/01/2024) us Naomi Roman MD ECG ORDERABLES Final Result Performing Organization Address City/[facility]/ZIP Co de Phone Number [facility]# [id number] [address] [facility] [place] [address] from Last 3 Months Insurance [employer] CHOICE POS II Care Teams Chemistry Account Manager Relationship Specialty Start Date End Date Naomi Roman MD PCP - General Internal Medicine 10/01/13
--- OUTSIDE RECORDS SUMMARY | 2024-10-14 19:09 | XMS_ITS | Encounter Summary ---
Author Organization [facility] Address [address] [place] [address] Care Team Providers Care Sales Solutions Representative Name Role Phone Nic Roman MD Primary Care Provider Encounter Details Date Type Department Care Team (Late st Contact Info) Description 06/06/1998 Outpatient Historical [facility] [place] [address] [facility] [address] [place] [address] Stanley Samuels MD [address] [facility] [address] [place] [address] Social History Tobacco Use Types Packs/Day Years Used Date Smoking Tobacco: Never Assessed Sex and Gender Information Value Date Recorded Sex Assigned at Not on file 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 Gender Identity Not on file Sexual Orientation Not on file documented as of this encounter Plan of Treatment Upcoming Encounters Date Type Department Care Team (Late st Contact Info) Description 10/26/2024 9:00 AM CDT Appointment [facility] Diagnostic Cardiology Services [facility] [address] [facility] [address] [place] [address] Nic Roman MD [address] [facility] [place] [address] 10/26/2024 2:15 PM CDT Office Visit [facility] [address] [address] [address] [place] [address] Lc Wilson MD [address] [address] [address] [place] [address] 01/20/2025 1:30 PM CDT Office Visit [facility] [address] [place] [address] Shy Meng, [facility] [address] [facility] [place] [address] 01/28/2025 9:00 AM CDT Office Visit [facility] [address] [place] [address] Nic Roman MD [address] [facility] [place] [address] documented as of this encounter Visit Diagnoses Not on filedocumented in this encounter Care Teams Sales Solutions Representative Relationship Specialty Start Date End Date Nic Roman MD PCP - General Internal Medicine 10/01/13 documented as of this encounter
--- OUTSIDE RECORDS SUMMARY | 2024-10-14 19:09 | XMS_ITS | Continuity of Care Document ---
Author Organization [facility] Address [address] [place] [address] Phone Care Team Providers Care Oven Attendant Name Role Phone Chana Suazo MD Unavailable Unavailabl e Allergies, Adverse Reactions, Alerts Substance Reaction Status Criticality No Known Allergies Active No Inform ation Medications Medication Instructions Dosage Effective Dates (start - stop) Status Comments Mobic 15 mg tablet take 1 tablet by ora l route every day - Active Procedures Procedure Date OFFICE/OUTPATIENT VISIT NEW Advance Directives Directive Yes / No Effective Date File Name No Information Encounters Encounter Description Practice Location Reason(s) For Visit Diagnoses Date Provider Providers Copied on Encounter OFFICE/OUTPAT IENT VISIT NEW [facility] , [address], [place], [address], [place] tel:[phone] [facility] Rt shoulder (chief complaint)s houlder (chief complaint) Pain in joint involving shoulder regionSprain of unspecified site of wrist [address] , [place], [place], [id number] . tel: [phone] Referring Provider: Nic Roman, [address], [place], [address] . tel:[phone] Family History Family Member Type Diagnosis Age At Onset Sister Problem (finding) Maternal history of dina betes mellitus Payers Payer name Insurance type Covered libertarian ID Authoriza tion(s) No Information Social History Type Description Quantity Date Captured Comments Alcohol Use Details Caffeine Use Details Unknown Tobacco Use Status Never smoked tobacco 2013 Smoking Status Never smoker Non-Smoking Tobacco Use Details : No Details Available : No Details Available Sex Male Vital Signs Date / Time: Height Weight BMI Pulse Rate Blood Pressure Temperature Respiratory Rate Body Surface Area Head Circumference Head Circ. Percentile Wt./Zuhair. Percentile BMI percentile Pulse Ox Inhaled Ox 11:05 AM 72.00 in 92.986 kg (205.00 lbs) 27.8 0 kg/m eter (2) 132/92 mm[Hg] Chief Complaint And Reason For Visit From encounter dated '10/13/2013 10:50'. Rt shoulder (chief complaint) shoulder (chief complaint) Reason For Referral Reason For Referral No Information History Of Present Illness Encounter Date Complaint History Of Prese nt Illness shoulder Rt shoulder Functional Status Date Functional Assessmen t No Information Instructions Date Instruction Additional Infor mation No Information Assessments Type Assessment Date assessment Pain in joint involving shoulder region assessment Sprain of unspecified site of wr ist Patient Care Teams Name Effective Dates (start - stop) Status Members No Information
--- OUTSIDE RECORDS SUMMARY | 2024-10-14 19:09 | XMS_ITS | Clinical Summary ---
Author Organization [facility] Address [address] [place] [address] Care Team Providers Care Safety And Skill Based Pay Manager Name Role Phone Nic Roman MD Primary Care Provider [phone] Source Comments [facility],non-owned Affiliates and Associated Physician Practices is amultiple site organization consisting of ambulatory clinics and hospital sitesin [place], [place], [place] and [place]. This disclosure is being madepursuant to the Care Everywhere program and may not contain all information available regarding this patient. Last updated 18.[facility] Allergies No known active allergies Medications * Be aware that medications may not be up to date on this document. Alwaysverify current medications with the patient. montelukast (Singulair) 10 MG tablet Take 1 (one) tablet by mouth at bedtime Active Rosuvastatin Calcium 10 MG CPSP Take 10 mg by mouth once daily Active Other Take by mouth once daily 1 tablet xyzol at night Active meloxicam (Mobic) 15 MG tablet Take 1 (one) tablet by mouth once daily 15 tablet 4 Active testosterone (Androgel) 20.25 MG/ACT (1.62%) gelIndications: Hypogonadism in male Use 2 (two) Pump as instructed once daily Apply to shoulders and upper arms 75 g 3 5 Active Active Problems Problem Noted Date Diagnosed Date Obesity (BMI 30.0-34.9) 09/16/2022 01/10/20 23 Fatigue 08/29/2022 01/09/2023 Other insomnia 08/29/2022 01/09/2023 Pressure sensation in ear 08/29/20222022 Folliculitis 12/11/2021 Acute generalized abdominal pain 11/29/2021 Rash on lips 11/29/2021 Bacterial overgrowth syndrome 08/21/2021 Gastroesophageal reflux disease without esophagi tis 08/21/2021 Mixed hyperlipidemia 08/21/2021 Gastroesophageal reflux disease 08/21/2021 01/09/2023 Hypogonadism in male 05/10/2019 Resolved Problems Problem Noted Date Diagnosed Date Resolved Date Acute diarrhea 11/29/2021 07/25/2022 Encounters Date Type Department Care Team Description 07/28/2024 Refill [facility] Urology [address] [facility] [address] [facility] , [address] [place] [address] Benedicto Armijo MD MEDICATION REFILL 07/23/2024 9:45 AM CDT Office Visit [facility] Urology [address] [facility] , [address] [place] [address] Carmella Carrizales, LOGISTICS DIRECTOR-TAX PROCESSOR Hypogonadism in male (Primary Dx) from Last 3 Months Immunizations Immunization Administration Dates Next Due DTAP 5 PERTUSSIS ANTIGENS 12/15/2020 FLU VACCINE QUAD IIV4 SPLIT 0.25 ML IM 2 INFLUENZA VACCINE, QUADR. (F LUZONE; FLULAVAL; FLUARIX; AFLURIA QUADRIVALENT; 6MO+), 0.5 ML (IIV4) 02/04/2020 Family History Medical History Relation Name Comments Arthritis - Osteo Mother rheumatoid Diabetes - Type 1 Sister Relation Name Status Comments Mother Sister Social History Tobacco Use Types Packs/Day Years Used Date Smoking Tobacco: Never Smokeless Tobacco: Never Alcohol Use Standard Drinks/Week Comments Yes 0 (1 standard drink = 0.6 oz pur e alcohol) rare Sex and Gender Information Value Date Recorded Sex Assigned at Not on file Legal Sex Male 5:38 AM DISPLAYER Gender Identity Not on file Sexual Orientation Not on file Last Filed Vital Signs Vital Sign Reading Time Taken Comments Blood Pressure 114/72 07/23/2024 9:38 AM CDT Pulse 72 07/23/2024 9:38 AM CDT Temperature 36.7 C (98 F) 05/03/2021 9:54 AM DISPLAYER Respiratory Rate 16 01/12/2021 2:30 PM CDT Oxygen Saturation 98% 01/23/2024 11:02 AM CDT Inhaled Oxygen Concentration - - Weight 106.6 kg (235 lb) 07/23/2024 9:38 AM CDT Height 182.9 cm (6') 07/23/2024 9:38 AM CDT Body Mass Index 31.87 07/23/2024 9:38 AM CDT Plan of Treatment Upcoming Encounters Date Type Department Care Team (Late st Contact Info) Description 01/06/2025 8:30 AM CDT Testing Visit [facility] - ENT [address], [address] [place] [address] Vandana Basilio AuD [address] [place] [address] 01/06/2025 9:00 AM CDT Office Visit [facility] - ENT [address], [address] [place] [address] Vincent Hopson MD [address] [place] [address] 01/21/2025 10:00 AM CDT Office Visit [facility] - Urology [address] [place] [address] Isaías De La Fuente PA-C [address] [place] [address] Health Maintenance Due Date Last Done Comments HIV SCREENING 2006 HEPATITIS C SCREENING 02/02/2009 HEPATITIS B VACCINE (1 of + 3-dose series) 2010 COVID-19 VACCINE (2023-2 5 season) 2023 07/14/2020, 06/23/2020 DEPRESSION SCREENING 04/28/2024 INFLUENZA VACCINE (Season Ended) 2024 02/21/2022, 02/04/2020 DTAP/TDAP/TD VACCINES (2 - Tdap) 12/15/2030 12/15/2020 ZOSTER VACCINE (1 of 2) 2041 HIB VACCINE Aged Out No longer eligi ble based on patient's age to complete this topic HPV VACCINE Aged Out No longer eligi ble based on patient's age to complete this topic MENINGOCOCCAL (Group B) VACCINE SHARED DECISION-MAKING Aged Out No longer eligible based on patient's age to complete this topic MENINGOCOCCAL GROUPS A/C/Y/W VACCINE Aged Out No longer eligible b ased on patient's age to complete this topic PNEUMOCOCCAL VACCINE Aged Out No long er eligible based on patient's age to complete this topic Insurance AETNA AETNA AETNA [facility] [employer] AETNA AETNA AETNA AETNA AETNA AETNA AETNA AETNA AETNA AETNA AETNA AETNA Care Teams Safety And Skill Based Pay Manager Relationship Specialty Start Date End Date Nic Roman MD [address] [place] [phone] PCP - General 03/05/21
--- OUTSIDE RECORDS SUMMARY | 2024-10-14 19:09 | XMS_ITS | Encounter Summary ---
Author Organization [facility] Address [address] [place] [address] Care Team Providers Care Tile Sprayer Name Role Phone Nic Roman MD Primary Care Provider [phone] Encounter Details Date Type Department Care Team (Late st Contact Info) Description 10/08/2024 Results [facility] [address] [place] [phone] Nic Roman MD [address] [place] [address] [facility] [employer]I[employer] OUTPATIENT TELEMETRY Social History Tobacco Use Types Packs/Day Years Used Date Smoking Tobacco: Never Passive Smoke Exposure: Never Smokeless Tobacco: Never Alcohol Use Standard Drinks/Week Comments No 0 (1 standard drink = 0.6 oz pur e alcohol) Sex and Gender Information Value Date Recorded Sex Assigned at Not on file Legal Sex Male 2:50 AM CAMPAIGN MANAGER Gender Identity Not on file Sexual Orientation Not on file documented as of this encounter Miscellaneous Notes * Result Encounter Note - Nic Roman MD - 10/08/2024 5:44 AM CDT Episodes of arrhythmia including a flutter, V. tach Multiple PACs, PVCs Will refer to cardiology service for further evaluation documented in this encounter Plan of Treatment Upcoming Encounters Date Type Department Care Team (Late st Contact Info) Description 10/26/2024 9:00 AM CDT Appointment [facility] Cardiology Services [facility] [address] [place] [address] Nic Roman MD [address] [facility] [place] [address] 10/26/2024 2:15 PM CDT Office [facility] [address] [address] [address] [place] [address] Lc Wilson MD [address] [address] [address] [place] [address] 01/20/2025 1:30 PM CDT Office [facility] [address] [address] Shy Meng, [facility] [address] [place] [address] [place] [address] 01/28/2025 9:00 AM CDT Office [facility] [address] [place] [address] Nic Roman MD [address] [facility] [place] [address] documented as of this encounter Visit Diagnoses Not on filedocumented in this encounter Care Teams Tile Sprayer Relationship Specialty Start Date End Date Nic Roman MD PCP - General Internal Medicine 10/01/13 documented as of this encounter
--- OUTSIDE RECORDS SUMMARY | 2024-10-14 19:09 | XMS_ITS | Encounter Summary ---
Author Organization [facility] Address [address] [place] [address] Care Team Providers Care Wire Galvanizer Name Role Phone Nic Roman MD Primary Care Provider [phone] Encounter Details Date Type Department Care Team (Latest Contact Info) Description 10/10/2024 Results Follow-Up [facility] [address] [facility] [place] [address] Nic Roman MD [address] [place] [address] SEDIMENTATION RATE, LANCE SCREEN W/REFLEX, ANGIOTENSIN CONVERTING ENZYME, CYCLIC CITRULLINATED PEPTIDE AB IGG Social History Tobacco Use Types Packs/Day Years Used Date Smoking Tobacco: Never Passive Smoke Exposure: Never Smokeless Tobacco: Never Alcohol Use Standard Drinks/Week Comments No 0 (1 standard drink = 0.6 oz pur e alcohol) Sex and Gender Information Value Date Recorded Sex Assigned at Not on file Legal Sex Male 2:50 AM BEATER TENDER Gender Identity Not on file Sexual Orientation Not on file documented as of this encounter Miscellaneous Notes * Result Encounter Note - Nic Roman MD - 10/11/2024 9:31 PM CDT Immune system testing for sarcoidosis, lupus, rheumatoid all negative * Result Encounter Note - Nic Roman MD - 10/10/2024 9:53 AM CDT ESR inflammation test normal. Other labs pending documented in this encounter Plan of Treatment Upcoming Encounters Date Type Department Care Team (Late st Contact Info) Description 10/26/2024 9:00 AM CDT Appointment [facility] Cardiology Services [address] [place] [address] Nic Roman MD [address] [facility] [place] [address] 10/26/2024 2:15 PM CDT Office Visit [facility] [place] [address] [address] [address] [place] [address] Lc Wilson MD [address] [address] [address] [place] [address] 01/20/2025 1:30 PM CDT Office Visit [facility] [address] [place] [address] Shy Meng FNP [address] [place] [address] 01/28/2025 9:00 AM CDT Office Visit [facility] [address] [place] [address] Nic Roman MD [address] [facility] [place] [address] documented as of this encounter Visit Diagnoses Not on filedocumented in this encounter Care Teams Wire Galvanizer Relationship Specialty Start Date End Date Nic Roman MD PCP - General Internal Medicine 10/01/13 documented as of this encounter
--- OUTSIDE RECORDS SUMMARY | 2024-10-14 19:09 | XMS_ITS ---
Author Organization Unknown Medications Medication Instructions Effective Dates (start - stop) Status dexamethasone 0.5 MG Oral Tablet 00:00:00Z - Completed rosuvastatin calcium 10 MG O ral Tablet - Completed doxycycline hyclate 100 MG O ral Capsule - Completed montelukast 10 MG Oral Tablet 2023-03-16 00:00:00Z - Completed rosuvastatin calcium 10 MG O ral Tablet - Completed rosuvastatin calcium 10 MG O ral Tablet - Completed rosuvastatin calcium 10 MG O ral Tablet - Completed montelukast 10 MG Oral Tablet 2023-09-14 00:00:00Z - Completed dexamethasone 0.5 MG Oral Tablet 00:00:00Z - Completed montelukast 10 MG Oral Tablet 2022-12-16 00:00:00Z - Completed Patient Care team information Name Category Status Period Participants - - Proposed period not known -
--- OUTSIDE RECORDS SUMMARY | 2024-10-14 19:09 | XMS_ITS | Clinical Summary ---
Author Organization [facility] Address [address] [place] [id number] Care Team Providers Care Colorist Name Role Phone Unavailable Primary Care Provider Unavailabl e Social History Tobacco Use Types Packs/Day Years Used Date Smoking Tobacco: Never Assessed Sex and Gender Information Value Date Recorded Sex Assigned at Not on file Legal Sex Male 11:12 PM CDT Gender Identity Not on file Sexual Orientation Not on file Last Filed Vital Signs Vital Sign Reading Time Taken Comments Blood Pressure 124/68 03/13/2015 8:33 AM ELECTRIC PILE DRIVER OPERATOR Pulse 70 03/13/2015 8:33 AM ELECTRIC PILE DRIVER OPERATOR Temperature - - Respiratory Rate - - Oxygen Saturation - - Inhaled Oxygen Concentration - - Weight 93.4 kg (206 lb) 03/13/2015 8:33 AM ELECTRIC PILE DRIVER OPERATOR Height 182.9 cm (6') 03/13/2015 8:33 AM ELECTRIC PILE DRIVER OPERATOR Body Mass Index 27.94 03/13/2015 8:33 AM ELECTRIC PILE DRIVER OPERATOR Plan of Treatment Health Maintenance Due Date Last Done Comments Annual Physical 1994 Hepatitis C 2009 DTaP, Tdap and Td Vaccines ( 1 - Tdap) 2010 Hepatitis B Vaccines (1 of 3 - 19+ 3-dose series) 2010 COVID-19 Vaccine (2023-2 5 season) 2023 HPV Vaccines Aged Out No longer eligi ble based on patient's age to complete this topic Meningococcal B Vaccine Aged Out No l onger eligible based on patient's age to complete this topic Meningococcal Vaccine Aged Out No emelyn clay eligible based on patient's age to complete this topic Pneumococcal Vaccine: Pediat rics (0 to 5 Years) and At-Risk Patients (6 to 49 Years) Aged Out No longer eligible b ased on patient's age to complete this topic RSV Immunizations Under 20 Months Aged Out No longer eligible based on patient's age to complete this topic
--- NOTE | 2024-10-14 19:31 | ECG_ITS ---
Test Date: 2024-10-14 19:35:09 Measurements Intervals [place] Rate: 59 P: 0 MN: 0 QRS: 6 QRSD: 89 T: 53 QT: 377 QTc: 375 Interpretive Statements SINUS BRADYCARDIA LOW QRS VOLTAGE IN PRECORDIAL LEADS MINIMAL Q WAVES- HIGH LATERAL LEADS BASELINE ARTIFACT- I, II, III, AVR, AVL, AVF, V1-V6 BORDERLINE ECG Compared to ECG 10/05/2024 15:32:24 Low QRS voltage now present Electronically Signed On 10-14-2024 20:21:52 CDT by Iker Syed D.O.
[2024-10-14 19:32] VITALS: BP 173/76; PULSE 58; RESP 20; TEMP 36.8; O2SAT 100
[2024-10-14 19:51] LABS: Basophils Absolute Auto 0.1 K/mm3 (0.0-0.1); Basophils Percent Auto 0.7 % (0.2-1.2); Eosinophils Absolute Auto 0.1 K/mm3 (0-0.3); Eosinophils Percent Auto 1.7 % (0-4.4); Hematocrit 42.9 % (42.0-52.0); Hemoglobin 14.7 g/dL (14.0-18.0); Immature Granulocyte Absolute 0.02 K/mm3 (0.00-0.031); Immature Granulocyte Percent A 0.3 % (0-0.5); Lymphocytes Absolute Auto 1.76 K/mm3 (0.9-3.2); Lymphocytes Percent Auto 24.6 % (18.3-44.2); Mean Corpuscular HGB Conc 34.3 g/dl (32-36); Mean Corpuscular Hemoglobin 27.8 pg (26-34); Mean Corpuscular Volume 81.3 fl (80-100); Mean Platelet Volume 9.2 fl (7.4-10.4); Monocytes Percent Auto 13.7 % (2.6-8.5); Neutrophils Absolute Auto 4.2 K/mm3 (1.3-6.7); Platelet Count Result 200 k/mm3 (150-375); Red Blood Count 5.28 M/mm3 (4.6-6.20); Red Cell Distribution Width 12.7 % (11.5-14.5); White Blood Count 7.2 K/mm3 (4.5-10.0)
[2024-10-14 20:00] LABS: Alanine Aminotransferase 53 U/L (6-50); Albumin Level 4.6 g/dL (3.5-5.1); Alkaline Phosphatase 49 U/L (38-126); Anion Gap 9 mmol/L (4-12); Aspartate Amino Transferase 43 U/L (17-59); Bilirubin,Total 0.6 mg/dL (0.2-1.3); Blood Urea Nitrogen 20 mg/dL (9-20); Calcium 9.6 mg/dL (8.4-10.2); Carbon Dioxide 27 mmol/L (22-30); Chloride 104 mmol/L (98-107); Estimated CRCL calculation 107 ml/min; Estimated Glomerular Filt Rate > 60; Glucose 97 mg/dL (65-110); Lipase 64 U/L (23-300); Sodium 140 mmol/L (137-145); Total Protein 8.1 g/dL (6.3-8.2)
[2024-10-14 20:04] LABS: INR 1.1; Prothrombin Time 14.3 Seconds (11.1-14.7)
[2024-10-14 20:05] LABS: Partial Thromboplastin Time 29.7 Seconds (22.3-36.8)
[2024-10-14 20:12] LABS: Troponin I < 0.012 ng/mL (0.000-0.034)
[2024-10-14 20:23] VITALS: PULSE 61
[2024-10-14 20:30] VITALS: BP 154/97; PULSE 68; RESP 18; O2SAT 97
--- OUTSIDE RECORDS SUMMARY | 2024-10-14 20:56 | XMS_ITS | Continuity of Care Document ---
Author Organization [facility] Address [address] [place] [address] Phone Care Team Providers Care Alternative Medicine Practitioner Name Role Phone Chana Suazo MD Unavailable [...] OFFICE/OUTPAT IENT VISIT [facility] , [address], [place], [address], [place] tel:[phone] [facility] Rt shoulder (chief complaint)s houlder (chief complaint) Pain in joint involving shoulder regionSprain of unspecified site of wrist [address]. [address] , [place], [place], [id number] . tel: [phone] Referring Provider: Nic Roman, [address], [place], [address] . tel:[phone] Family History Family Member Type Diagnosis Age At Onset Sister Problem (finding) Maternal history of dina betes mellitus Payers Payer name Insurance type Covered republican ID Authoriza tion(s) No Information Social History [...]
--- OUTSIDE RECORDS SUMMARY | 2024-10-14 20:56 | XMS_ITS | Clinical Summary ---
Author Organization [employer] [facility] [address] Address [address] [facility] [place] [address] Phone Care Team Providers Care Resident Care Technician Name Role Phone Naomi Roman MD Primary Care Provider [phone] Allergies No known active allergies Medications ondansetron [...] Department Care Team Description 10/11/2024 Orders Only [facility] PRIMARY [facility] [address] [place] [address] Naomi Roman MD Anxiety state (Primary Dx) 10/10/2024 Results Follow-Up [facility] [address] [place] [phone] Naomi Roman MD SEDIMENTATION RATE, LANCE SCREEN W/REFLEX, ANGIOTENSIN CONVERTING ENZYME, CYCLIC CITRULLINATED PEPTIDE AB IGG 10/08/2024 9:20 AM CDT Office Visit [facility] [address] [place] [address] Naomi Roman MD Other form of dyspnea (Primary Dx); Other cardiac arrhythmia; Pleurisy; Palpitation; Mixed hyperlipidemia; Hypogonadism in male 10/08/2024 Results Follow-Up [address] [place] [phone] Naomi Roman MD MOBILE CARDIAC OUTPATIENT TELEMETRY 10/05/[address] [place] [address] Naomi Roman MD Clinical Consult Before Scheduling; Chest Pain 09/11/2024 Orders Only [address] [place] [phone] Naomi Roman MD Palpitation (Primary Dx) 09/10/[address] [place] [address] Naomi Roman MD Question 09/03/2024 2:07 PM CDT - 09/03/2024 11:59 PM CDT Hospital Encounter [facility] Non Invasive Cardiology [address] [place] [address] Naomi Roman MD Discharge Disposition: Home or Self Care 09/03/2024 Orders Only [facility] [address] [place] [phone] Naomi Roman MD Palpitation (Primary Dx) 09/03/[address] [place] [address] Naomi Roman MD MCOT placed; appt for MCOT; MCOT info 09/03/[address] [place] [address] Shy Meng FNP 09/02/2024 Orders Only [address] [place] [address] Naomi Roman MD Palpitation (Primary Dx) 09/02/2024 Results Follow-Up [address] [place] [address] Naomi Roman MD TSH, CBC WITH DIFFERENTIAL, COMPREHENSIVE METABOLIC PANEL, MAGNESIUM LEVEL 09/01/2024 3:20 PM CDT Office Visit [address] [place] [address] Naomi Roman MD Palpitation (Primary Dx); Hypogonadism [...] on file 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 Gender Identity Not on file Sexual Orientation [...] Info) Description 10/26/2024 9:00 AM CDT Appointment [facility] Cardiology Services [facility] [address] [facility] [address] [place] [address] Naomi Roman MD [address] [facility] [place] [address] 10/26/2024 2:15 PM CDT Office Visit [facility] CARDIOLOGY [place] [address] [address] [address] [place] [address] Lc Wilson MD [address] [address] [address] [place] [address] 01/20/2025 1:30 PM CDT Office Visit [facility] PRIMARY [facility] [address] [place] [address] Shy Meng FNP [address] [place] [address] [place] [address] 01/28/2025 9:00 AM CDT Office Visit [facility] [address] [place] [address] Naomi Roman MD 1500 [facility] [place] [address] Health Maintenance Due Date [...] AB IGG (10/08/2024 10:19 AM CDT) Pathologist [facility] CYCLIC CITRULLINATED PEPTIDE AB IGG <16 UNITS [facility] Comment: Reference Range Negative: <20 Weak Positive: 20-39 Moderate Positive: 40-59 Strong Positive: >59 Test Performed at: [facility] [address] [place] [address] Zaina Thompson MD Blood 10/08/2024 10:1 9 AM CDT 10/08/2024 10:19 AM CDT Naomi Roman MD CHEMISTRY ORDERABLES Final Resu lt Performing Organization Address City/[facility]/ZIP [facility] Phone Number [facility] [phone] [facility] [address] [place] [address] * SEDIMENTATION RATE (10/08/2024 10:19 AM CDT) Pathologist [facility] ESR (SEDIMENTATION RATE) 2 < OR = 15 mm/h [facility] Comment: Test Performed at: [employer] [place] [place] [address] [place] [address] Zaina Thompson Blood 10/08/2024 10:1 9 AM CDT 10/08/2024 10:19 AM CDT Naomi Roman MD HEMATOLOGY ORDERABLES Final Res ult Performing Organization Address City/[facility] Phone Number [facility] [phone] [address] [place] [address] * ANGIOTENSIN CONVERTING ENZYME (10/08/2024 10:19 AM CDT) Pathologist [facility] ANGIOTENSIN CONVERTING ENZYME 15 9 - 67 U/L [facility] Comment: Test Performed at: [facility] [address] [place] [address] Zaina Thompson MD Blood 10/08/2024 10:1 9 AM CDT 10/08/2024 10:19 AM CDT Naomi Roman MD CHEMISTRY ORDERABLES Final Resu lt Performing Organization Address City/[facility]/ZIP Co de Phone Number [facility] [phone] [facility] [address] [place] [address] * LANCE SCREEN W/REFLEX (10/08/2024 10:19 AM CDT) LANCE SCREEN NEGATIVE NEGATIVE [facility] Comment: LANCE IFA is a first line [...] AC-0: Negative International Consensus on LANCE Patterns (https://doi.org/10.1515/hzcc-4629-4057) For additional information, please refer to http://education.[employer]/faq/NDO093 (This link is being provided for informational/ educational purposes only.) Test Performed at: [facility] [address] Zaina Thompson MD Blood 10/08/2024 10:1 9 AM CDT 10/08/2024 10:19 AM CDT Naomi Roman MD CHEMISTRY ORDERABLES Final Resu lt [facility] [phone] [facility] [address] [address] [facility] [place] [address] * MOBILE CARDIAC OUTPATIENT TELEMETRY (10/02/2024 5:00 AM CDT) 10/02/2024 5:00 AM CDT Narrative INTERFACE SYSTEM - 10/07/2024 7:40 AM CDT [facility] [address] [place] [address] Test Date: 2024-10-02 Pat Name: RUPERTO VILLARREAL Department: Room: Gender: Male Calibration Engineer: : 1990 Requested By: NAOMI ROMAN Order Number: [id number] Josesito LAWSON: Dmitriy Bruce Interpretive Statements Patient [...] Procedure Note Dmitriy Bruce MD - 10/07/2024 [facility] [address] [place] [address] Test Date: 2024-10-02 Pat Name: RUPERTO VILLARREAL Department: Room: Gender: Male Calibration Engineer: : 1990 Requested By: NAOMI ROMAN Order Number: [id number] Josesito LAWSON: Dmitriy Bruce Interpretive Statements Patient [...] Comment: FASTING:YES FASTING: YES Test Performed at: [facility] [address] Zaina Thompson MD Blood 09/01/2024 4:48 PM CDT 09/01/2024 4:48 PM CDT Naomi Roman MD HEMATOLOGY ORDERABLES Final Res ult Performing Organization Address City/[facility]/ZIP Co de Phone Number [facility] [phone] [facility] [address] * TSH (09/01/2024 4:48 PM CDT) TSH 1.78 0.40 - 4.50 mIU/L [facility] Comment: FASTING:YES FASTING: YES Test Performed at: [facility] [address] Zaina Thompson MD Blood 09/01/2024 4:48 PM CDT 09/01/2024 4:48 PM CDT Naomi Roman MD CHEMISTRY ORDERABLES Final Resu lt Performing Organization Address City/[facility]/ZIP Co de Phone Number [facility] [phone] [facility] [address] [place] [address] * MAGNESIUM LEVEL (09/01/2024 4:48 PM CDT) MAGNESIUM 2.4 1.5 - 2.5 mg/dL [facility] Comment: Test Performed at: [employer] [address] Zaina Thompson MD Blood 09/01/2024 4:48 PM CDT 09/01/2024 4:48 PM CDT Naomi Roman MD CHEMISTRY ORDERABLES Final Resu lt [facility] [phone] [facility] [address] [place] [address] * COMPREHENSIVE METABOLIC PANEL (09/01/2024 4:48 PM [...] Comment: FASTING:YES FASTING: YES Test Performed at: [facility] [address] [place] [address] Zaina Thompson MD Blood 09/01/2024 4:48 PM CDT 09/01/2024 4:48 PM CDT us Naomi Roman MD CHEMISTRY ORDERABLES Final Resu lt [facility] [phone] [facility] [address] [place] [address] * (ABNORMAL) EKG 12-LEAD (09/01/2024) us Naomi Roman MD ECG ORDERABLES Final Result Performing Organization Address City/[facility]/ZIP Co de Phone Number [facility]# [phone] [address] [facility] [place] [address] from Last 3 Months Insurance AETNA CHOICE POS II Care Teams Resident Care Technician Relationship Specialty Start Date End Date Naomi Roman MD PCP - General Internal Medicine 10/01/13
--- OUTSIDE RECORDS SUMMARY | 2024-10-14 20:56 | XMS_ITS | Encounter Summary ---
Author Organization [facility] Address [address] [place] [address] Care Team Providers Care Ticket Speculator Name Role Phone Nic Roman MD Primary Care Provider Encounter Details Date Type Department Care Team (Late st Contact Info) Description 10/08/2024 Results Follow-Up [facility] PRIMARY CARE [address] [place] [phone] Nic Roman MD 1500 [facility] [address] MOBILE CARDIAC OUTPATIENT TELEMETRY Social History Tobacco Use Types Packs/Day Years Used Date Smoking Tobacco: Never Passive Smoke Exposure: Never Smokeless Tobacco: Never Alcohol Use Standard Drinks/Week Comments No 0 (1 standard drink = 0.6 oz pur e alcohol) Sex and Gender Information Value Date Recorded Sex Assigned at Not on file 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 Gender Identity Not on file Sexual Orientation [...] Info) Description 10/26/2024 9:00 AM CDT Appointment [facility] Cardiology Services [facility] [address] [place] [address] Nic Roman MD [address] [facility] [place] [address] 10/26/2024 2:15 PM CDT Office Visit [facility] CARDIOLOGY [place] [address] [address] [address] [place] [address] Lc Wilson MD [address] [address] [address] [place] [address] 01/20/2025 1:30 PM CDT Office Visit [facility] PRIMARY CARE [facility] [address] [facility] [place] [address] Shy Meng, [facility] [address] [place] [address] 01/28/2025 9:00 AM CDT Office Visit [facility] PRIMARY CARE [address] [place] [address] Nic Roamn MD [address] [facility] [place] [address] documented as of this encounter Visit Diagnoses Not on filedocumented in this encounter Care Teams Ticket Speculator Relationship Specialty Start Date End Date Nic Roman MD PCP - General Internal Medicine 10/01/13 documented as of this encounter
--- OUTSIDE RECORDS SUMMARY | 2024-10-14 20:56 | XMS_ITS | Clinical Summary ---
Author Organization [facility] Address [address] [place] [address] Care Team Providers Care Lab Asst Name Role Phone Nic Roman MD Primary Care Provider [phone] Source Comments [facility],non-owned Affiliates and Associated Physician Practices is amultiple site organization consisting of ambulatory clinics and hospital sitesin [place], [place], [place] and [place]. This disclosure is being madepursuant to the Care Everywhere program and may not contain all information available regarding this patient. 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 - ENT [address], [address] [place] [address] Vandana Basilio AuD [address] [place] [address] 01/06/2025 9:00 AM CDT Office Visit [facility] - ENT [address] [place] [address] Vincent Hopson MD [address] [place] [address] 01/21/2025 10:00 AM CDT Office Visit [facility] - Urology [address] [place] [address] Isaías De La Fuente PA-C [address] [place] [address] Health Maintenance Due Date Last Done Comments [...] complete this topic Insurance AETNA AETNA AETNA [facility] AETNA AETNA AETNA AETNA AETNA AETNA AETNA AETNA AETNA Member Subscriber Plan / Payer ([facility] 10/26/2016-) Name:Phil, Christopher D Relation to Subscriber:Self Name:PHIL,CHRISTOPHER D Payer ID:[id number] ([facility]) Type:[facility] Address: [facility] [id number] [place] [phone] AETNA Member Subscriber Plan / Payer ([facility] 10/26/2016-) Name:[place], Christopher D Relation to Subscriber:Self Name:PHIL,CHRISTOPHER D Payer ID:[id number] ([facility]) Type:[facility] Address: [facility] [address] [place] [address] AETNA AETNA Member Subscriber Plan / Payer ([facility] 10/26/2016-) Name:Phil, Christopher D Relation to Subscriber:Self Name:PHIL,CHRISTOPHER D Payer ID:[id number] ([facility]) Type:PPO Address: [facility] [id number] [place] [address] Care Teams Lab Asst Relationship Specialty Start Date End Date Nic Roman MD [address] [place] [phone] PCP - General 03/05/21
--- OUTSIDE RECORDS SUMMARY | 2024-10-14 20:56 | XMS_ITS | Encounter Summary ---
Author Organization [facility] Address 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 Cardiology Services [address] [place] [address] Nic Roman MD [address] [facility] [place] [address] 10/26/2024 2:15 PM CDT Office Visit [facility] CARDIOLOGY [place] [address] [address] [address] [place] [address] Lc Wilson MD [address] [address] [address] [place] [address] 01/20/2025 1:30 PM CDT Office Visit [facility] PRIMARY CARE [address] [place] [address] Shy Meng FNP [address] [place] [address] 01/28/2025 9:00 AM CDT Office Visit [facility] [address] [place] [address] Nic Roman MD [address] [facility] [place] [address] documented as of this encounter Visit Diagnoses Not on filedocumented in this encounter Care Teams Enrobing Machine Operator Relationship Specialty Start Date End Date Nic Roman MD PCP - General Internal Medicine 10/01/13 documented as of this encounter
--- OUTSIDE RECORDS SUMMARY | 2024-10-14 20:56 | XMS_ITS | Encounter Summary ---
Author Organization [facility] Address [address] [place] [address] Care Team Providers Care Neon Pumper Name Role Phone Nic Roman MD Primary Care Provider Encounter Details Date Type Department Care Team (Late st Contact Info) Description 06/06/1998 Outpatient Historical [facility] Pediatrics [place] [address] [facility] [address] [place] [address] Stanley Samuels MD [address] [facility] [address] [place] [address] Social History Tobacco Use Types Packs/Day Years Used Date Smoking Tobacco: Never Assessed Sex and Gender Information Value Date Recorded Sex Assigned at Not on file 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 CARDIOLOGY [address] [address] [address] [place] [address] Lc Wilson MD [address] [address] [address] [place] [address] 01/20/2025 1:30 PM CDT Office Visit [facility] PRIMARY CARE [address] [place] [address] Shy Meng, [facility] [address] [facility] [place] [address] 01/28/2025 9:00 AM CDT Office Visit [facility] PRIMARY CARE [address] [place] [address] Nic Roman MD 1500 [facility] [place] [address] documented as of this encounter Visit Diagnoses Not on filedocumented in this encounter Care Teams Neon Pumper Relationship Specialty Start Date End Date Nic Roman MD PCP - General Internal Medicine 10/01/13 documented as of this encounter
--- OUTSIDE RECORDS SUMMARY | 2024-10-14 20:56 | XMS_ITS | Clinical Summary ---
Author Organization [facility] Address [address] [place] [address] Care Team Providers Care Blood Coordinator Name Role Phone Unavailable Primary Care Provider [...] Comments Blood Pressure 124/68 03/13/2015 8:33 AM MEDICAL CODING SPECIALIST Pulse 70 03/13/2015 8:33 AM MEDICAL CODING SPECIALIST Temperature - - Respiratory Rate - - Oxygen Saturation - - Inhaled Oxygen Concentration - - Weight 93.4 kg (206 lb) 03/13/2015 8:33 AM MEDICAL CODING SPECIALIST Height 182.9 cm (6') 03/13/2015 8:33 AM MEDICAL CODING SPECIALIST Body Mass Index 27.94 03/13/2015 8:33 AM MEDICAL CODING SPECIALIST Plan of Treatment Health Maintenance Due Date [...]
[2024-10-14 21:06] LABS: D Dimer 0.38 ug/mL (<0.48)
[2024-10-14 21:25] LABS: NT Pro B Type Natriuretic Pept < 20 pg/mL (19.9-100)
--- NOTE | 2024-10-14 21:30 | ED.GENADULT ---
HPI - General Adult General Chief complaint: Dizziness Stated complaint: tingling BUE, dizziness, recent arrhythmias Time Seen by Provider: 10/14/24 20:27 History of Present Illness HPI narrative: This is a 34-year-old male with history of anxiety with panic attacks, and palpitations presenting for palpitations. Patient says over last 2 months he has been feeling his heart skip a beat. This occurs over 100 times a day. He just had a squeak rattle and leak repairer placed 1 month ago but he has not seen his batter mixer helper to review the results yet. Patient started having palpitations and difficulty breathing earlier today. He felt a feeling of overwhelming dread or that he was going to . He developed tingling around his hands and around his mouth. This has happened multiple times over the last 2 months. During these episodes his chest pressure that he rates 1/10. Patient has recently been started on anti anxiety medication. Related Data Home Medications ?Medication ?Instructions ?Recorded ?Confirmed ?Last Taken ?Type doxepin 25 mg capsule 25 mg PO HS 03/23/21 08/30/22 Unknown History fluticasone propionate 50 1 spray intranasal DAILY 08/30/22 08/30/22 Unknown History mcg/actuation nasal spray,suspension levocetirizine 5 mg tablet (Xyzal) 5 mg PO DAILY 08/30/22 08/30/22 Unknown History montelukast 10 mg tablet mg 10/05/24 Unknown History rosuvastatin 10 mg tablet mg 10/05/24 Unknown History testosterone 10/05/24 Unknown History Allergies Allergy/AdvReac Type Severity Reaction Status Date / Time No Known Allergies Allergy Verified 10/14/24 19:36 [facility] Past Medical History Medical History No pertinent past medical history Exam Narrative: APPEARANCE: No apparent distress. Head: atraumatic. EYES: EOMI, NOSE: Atraumatic NECK: Trachea midline RESPIRATORY: No increased rate of breathing clear to auscultation CARDIOVASCULAR: RRR, no peripheral edema ABDOMINAL: Non-distended soft nontender MUSCULOSKELETAl: No obvious deformities NEURO: Alert. Moving 4/4 extremities SKIN:: Warm, dry. Normal color PSYCHIATRIC: Normal affect Course Vital Signs Vital signs: Vital Signs Temperature 36.8 C 10/14/24 19:32 Pulse Rate 58 L 10/14/24 19:32 Respiratory Rate 20 10/14/24 19:32 Blood Pressure 173/76 H 10/14/24 19:32 Pulse Oximetry 100 10/14/24 19:32 Oxygen Delivery Room Air 10/14/24 19:32 Temperature 36.8 C 10/14/24 19:32 Pulse Rate 88 10/14/24 23:21 Respiratory Rate 18 10/14/24 23:21 Blood Pressure 122/74 10/14/24 23:21 Pulse Oximetry 97 10/14/24 23:21 Oxygen Delivery Room Air 10/14/24 20:30 Medical Decision Making MDM Narrative Medical decision making narrative: -Course: 34-year-old male presenting with 2 months of palpitations and increased anxiety. Chest pain workup obtained with EKG chest x-ray troponin BNP and D-dimer with a negative result. I spent significant time speaking to the patient about his symptoms. Symptoms are most consistent with anxiety and panic disorder. Patient has been signed the and position pending repeat troponin. If it is negative the patient be discharged follow-up with his batter mixer helper and primary care physician. -DDX includes but is not limited to: Anxiety panic disorder, ACS, PE, pneumonia, pneumothorax, COPD, asthma Independent EKG interpretation: Rhythm [sinus], Rate [59], [place] -[normal], DC -[normal], QRS [narrow], QTC [normal], T waves -[negative for concerning inversions], ST Segments - [Negative for concerning elevations] Final interpretations: [Normal Sinus Rhythm] Vital Signs Vital Signs: Vital Signs Temperature 36.8 C 10/14/24 19:32 Pulse Rate 58 L 10/14/24 19:32 Respiratory Rate 20 10/14/24 19:32 Blood Pressure 173/76 H 10/14/24 19:32 Pulse Oximetry 100 10/14/24 19:32 Oxygen Delivery Room Air 10/14/24 19:32 Temperature 36.8 C 10/14/24 19:32 Pulse Rate 88 10/14/24 23:21 Respiratory Rate 18 10/14/24 23:21 Blood Pressure 122/74 10/14/24 23:21 Pulse Oximetry 97 10/14/24 23:21 Oxygen Delivery Room Air 10/14/24 20:30 Lab Data 10/14/24 19:42 10/14/24 19:42 Labs: Lab Results 10/14/24 10/14/24 Range/Units 19:42 22:36 WBC 7.2 (4.5-10.0) K/mm3 RBC 5.28 (4.6-6.20) M/mm3 Hgb 14.7 (14.0-18.0) g/dL Hct 42.9 (42.0-52.0) % MCV 81.3 (80-100) fl MCH 27.8 (26-34) pg MCHC 34.3 (32-36) g/dl RDW 12.7 (11.5-14.5) % Plt Count 200 (150-375) k/mm3 MPV 9.2 (7.4-10.4) fl Immature Gran % (Auto) 0.3 (0-0.5) % Neut % (Auto) 59.0 (45.5-73.1) % Lymph % (Auto) 24.6 (18.3-44.2) % [place] % (Auto) 13.7 H (2.6-8.5) % Eos % (Auto) 1.7 (0-4.4) % Baso % (Auto) 0.7 (0.2-1.2) % Lymph # (Auto) 1.76 (0.9-3.2) K/mm3 [place] # (Auto) 1.0 H (0.1-0.6) K/mm3 Eos # (Auto) 0.1 (0-0.3) K/mm3 Baso # (Auto) 0.1 (0.0-0.1) K/mm3 Abs Immat Gran (auto) 0.02 (0.00-0.031) K/mm3 Absolute Neuts (auto) 4.2 (1.3-6.7) K/mm3 Absolute Nucleated RBC 0.000 (0.0-0.012) K/mm3 Nucleated RBC % 0.0 (0.0-0.2) % PT 14.3 (11.1-14.7) Seconds INR 1.1 APTT 29.7 (22.3-36.8) Seconds D-Dimer 0.38 (<0.48) ug/mL Sodium 140 (137-145) mmol/L Potassium 4.0 (3.4-5.0) mmol/L Chloride 104 (98-107) mmol/L Carbon Dioxide 27 (22-30) mmol/L Anion Gap 9 (4-12) mmol/L BUN 20 (9-20) mg/dL Creatinine 1.10 (0.7-1.3) mg/dL Estim Creat Clear Calc 107 ml/min Estimated GFR > 60 (59 - ) Glucose 97 (65-110) mg/dL Calcium 9.6 (8.4-10.2) mg/dL Total Bilirubin 0.6 (0.2-1.3) mg/dL AST 43 (17-59) U/L ALT 53 H (6-50) U/L Alkaline Phosphatase 49 (38-126) U/L Troponin I < 0.012 < 0.012 (0.000-0.034) ng/mL NT-Pro-B Natriuret Pep < 20 (19.9-100) pg/mL Total Protein 8.1 (6.3-8.2) g/dL Albumin 4.6 (3.5-5.1) g/dL Lipase 64 (23-300) U/L Discharge Plan Discharge Clinical Impression: Anxiety, Palpitation Patient Disposition: Home Condition: Stable Instructions: Antibiotic Form, Anxiety (ED) Additional Instructions: You were seen in the emergency department for palpitations. Your workup here was reassuring. Please follow-up with your primary care physician batter mixer helper for further management. If you develop any new or worsening symptoms he can return to the ED at any time. Patient Language: Lebanese Prescriptions: No Action doxepin 25 mg capsule 25 mg PO HS montelukast 10 mg tablet rosuvastatin 10 mg tablet testosterone 20.25 mg/1.25 gram (1.62 %) gel in metered-dose pump naproxen 500 mg tablet 500 mg PO BID PRN (Reason: pain) 7 Days Qty: 14 0RF fluticasone propionate [Flonase] 50 mcg/actuation [place],Suspension 1 spray INTRANASAL DAILY Rx Instructions: administer into each nostril levocetirizine [Xyzal] 5 mg Tablet 5 mg PO DAILY Follow-up/Referrals: PHYSICIAN NOT ON STAFF,NONSTAFF [Primary Care Provider] - Tariq Hernandez MD [Physician] - Time of Disposition: 23:28
[2024-10-14 21:36] VITALS: BP 121/82; PULSE 71; RESP 18; O2SAT 97
--- NOTE | 2024-10-14 22:42 | ECG_ITS ---
Test Date: 2024-10-14 22:48:40 Measurements Intervals [place] Rate: 54 P: 17 [place]: 156 QRS: -16 QRSD: 96 T: 30 QT: 402 QTc: 382 Interpretive Statements SINUS BRADYCARDIA LOW QRS VOLTAGE IN PRECORDIAL LEADS MINIMAL Q WAVES- HIGH LATERAL LEADS BORDERLINE ECG Compared to ECG 10/14/2024 19:35:09 No significant changes Electronically Signed On 10-15-2024 07:07:09 CDT by Iker Syed D.O.
[2024-10-14 23:08] LABS: Troponin I < 0.012 ng/mL (0.000-0.034)
[2024-10-14 23:21] VITALS: BP 122/74; PULSE 88; RESP 18; O2SAT 97
[2024-10-14 23:41] VITALS: BP 130/75; PULSE 60; RESP 18; O2SAT 98
== END 2024-10-14 23:42 | disposition home or self-care (01) ==
PROVIDERS: Emergency Provider Emergency Medicine
DX: R00.2 Palpitations (principal); F41.9 Anxiety disorder, unspecified; R00.1 Bradycardia, unspecified
CPT/HCPCS: 36415; 71046; 80053; 83690; 83880; 84484; 85025; 85380; 85610; 85730; 93005; 99284